=== PATIENT | male | born 1985 | race Caucasian/White ===

== ENCOUNTER → 2017-04-01 | Outpatient (CLI) | payer SELFPAY ==
--- NOTE | 2017-04-01 16:16 | RADIOLOGY REPORT (SQ) ---
EXAM DESCRIPTION: WRIST RIGHT 3 VIEWS COMPLETED DATE/TIME: 04/01/2017 3:44 pm REASON FOR STUDY: PAIN IN RIGHT WRIST COMPARISON: None. TECHNIQUE: Three views study right wrist LIMITATIONS: None. FINDINGS: No acute fractures identified. Bony structures and joint spaces intact. If an occult fracture suspected clinically, consider followup imaging. IMPRESSION: Nothing acute appear TECHNICAL DOCUMENTATION: JOB ID: [id number] [employer]- All Rights Reserved
== END ==
LOC: OD 15:18
PROVIDERS: ATTEND Urology
DX: M25.531 Pain in right wrist (principal)

== ENCOUNTER 2017-06-10 13:27 | Emergency (ER) | payer SELFPAY ==
[2017-06-10] MEDS ORDERED: MORPHINE SULFATE 10 MG/ML INJ IV ONE ×2 (13:37→16:16)
[2017-06-10] MEDS ORDERED: NORMAL SALINE 1000 ML 1,000 ML IV ONE (13:37)
--- NOTE | 2017-06-10 13:38 | ER Document Report ---
ED Medical Screen (RME) - General Chief Complaint: Abdominal Pain Stated Complaint: ABDOMINAL PAIN,DIARRHEA,BLOOD IN STOOL Time Seen by Provider: 06/10/17 13:34 Notes: The patient is a 32-year-old male who presents with 2 days of nausea, vomiting, diarrhea and worsening left lower quadrant abdominal pain. He is also noticing streaks of blood in his stool. He has never had this before. Denies recent antibiotic use, fevers or urinary symptoms. PE: Tachycardia. Soft. Moderate LLQ abdominal tenderness. I have greeted and performed a rapid initial assessment of this patient. A comprehensive ED assessment and evaluation of the patient, analysis of test results and completion of the medical decision making process will be conducted by additional ED providers. TRAVEL OUTSIDE OF THE [place] IN LAST 30 DAYS: No - Related Data Allergies/Adverse Reactions: No Known Allergies Allergy (Verified 10/26/12 08:55) Home Medications: Current Home Medications No Home Medications 06/10/17 [History] Past Medical History Renal/ Medical History: Denies: Hx Peritoneal Dialysis - Immunizations Immunizations up to date: Yes Hx Diphtheria, Pertussis, Tetanus Vaccination: Yes Physical Exam - Vital signs Vitals: Temp Pulse Resp BP Pulse Ox 97.9 F 102 H 20 155/109 H 99 06/10/17 13:36 06/10/17 13:36 06/10/17 13:36 06/10/17 13:36 06/10/17 13:36 Course - Vital Signs Vital signs: Temp Pulse Resp BP Pulse Ox 97.9 F 102 H 20 155/109 H 99 06/10/17 13:36 06/10/17 13:36 06/10/17 13:36 06/10/17 13:36 06/10/17 13:36
--- NOTE | 2017-06-10 14:16 | ER Document Report ---
ED General - General Chief Complaint: Abdominal Pain Stated Complaint: ABDOMINAL PAIN,DIARRHEA,BLOOD IN STOOL Time Seen by Provider: 06/10/17 13:34 Mode of Arrival: Ambulatory Information source: Patient Notes: 32-year-old male presents with complaints of left lower quadrant abdominal pain with rectal bleeding. Patient denies any fevers or chills no symptoms have been ongoing for a few days TRAVEL OUTSIDE OF THE [place] IN LAST 30 DAYS: No - HPI Onset: Last week Onset/Duration: Persistent Quality of pain: Sharp Severity: Moderate Pain Level: 2 Associated symptoms: Diarrhea, Nausea Exacerbated by: Denies Relieved by: Denies Similar symptoms previously: No Recently seen / treated by doctor: No - Related Data Allergies/Adverse Reactions: No Known Allergies Allergy (Verified 06/10/17 13:42) Past Medical History - Social History Smoking Status: Current Some Day Smoker Cigarette use (# per day): Yes Chew tobacco use (# tins/day): No Smoking Education Provided: No Frequency of alcohol use: None Drug Abuse: None Family History: Reviewed & Not Pertinent Renal/ Medical History: Denies: Hx Peritoneal Dialysis - Immunizations Immunizations up to date: Yes Hx Diphtheria, Pertussis, Tetanus Vaccination: Yes Review of Systems - Review of Systems Notes: REVIEW OF SYSTEMS: CONSTITUTIONAL : Denies fever, chills, or sweats. Denies recent illness. EENT: Denies eye, ear, throat, or mouth pain or symptoms. Denies nasal or sinus congestion or discharge. Denies throat, tongue, or mouth swelling or difficulty swallowing. CARDIOVASCULAR: Denies chest pain. Denies palpitations or racing or irregular heart beat. Denies ankle edema. RESPIRATORY: Denies cough, cold, or chest congestion. Denies shortness of breath, difficulty breathing, or wheezing. GASTROINTESTINAL: Admits to left lower quadrant abdominal pain rectal bleeding GENITOURINARY: Denies difficulty urinating, painful urination, burning, frequency, blood in urine, or discharge. MUSCULOSKELETAL: Denies back or neck pain or stiffness. Denies joint pain or swelling. SKIN: Denies rash, lesions or sores. HEMATOLOGIC : Denies easy bruising or bleeding. LYMPHATIC: Denies swollen, enlarged glands. NEUROLOGICAL: Denies confusion or altered mental status. Denies passing out or loss of consciousness. Denies dizziness or lightheadedness. Denies headache. Denies weakness or paralysis or loss of use of either side. Denies problems with gait or speech. Denies sensory loss, numbness, or tingling. Denies seizures. PSYCHIATRIC: Denies anxiety or stress. Denies depression, suicidal ideation, or homicidal ideation. ALL OTHER SYSTEMS REVIEWED AND NEGATIVE. Dictation was performed using [employer] voice recognition software PHYSICAL EXAMINATION: GENERAL: Well-appearing, well-nourished and in no acute distress. HEAD: Atraumatic, normocephalic. EYES: Pupils equal round and reactive to light, extraocular movements intact, sclera anicteric, conjunctiva are normal. ENT: Nares patent, oropharynx clear without exudates. Moist mucous membranes. NECK: Normal range of motion, supple without lymphadenopathy LUNGS: Breath sounds clear to auscultation bilaterally and equal. No wheezes rales or rhonchi. HEART: Regular rate and rhythm without murmurs ABDOMEN: Soft, tender in left lower quadrant with guarding Musculoskeletal: Normal range of motion, no pitting or edema. No cyanosis. NEUROLOGICAL: Cranial nerves grossly intact. Normal speech, normal gait. Normal sensory, motor exams PSYCH: Normal mood, normal affect. SKIN: Warm, Dry, normal turgor, no rashes or lesions noted. Physical Exam - Vital signs Vitals: Temp Pulse Resp BP Pulse Ox 97.9 F 102 H 20 155/109 H 99 06/10/17 13:36 06/10/17 13:36 06/10/17 13:36 06/10/17 13:36 06/10/17 13:36 Course - Re-evaluation Re-evalutation: 06/10/17 14:16 Concern for diverticulitis noted, intra-abdominal concerns rule out abscess with CT abdomen pelvis 06/10/17 16:01 CT is consistent with inflammatory bowel disease however given his new onset symptoms I believe it is more of a colitis bacterial. Patient will be started on antibiotics will be given GI follow-up and is otherwise stable for discharge After performing a Medical Screening Examination, I estimate there is LOW risk for ACUTE APPENDICITIS, BOWEL OBSTRUCTION, ACUTE CHOLECYSTITIS, PERFORATED DIVERTICULITIS, INCARCERATED HERNIA, PANCREATITIS, or PERFORATED ULCER, thus I consider the discharge disposition reasonable. Also, there is no evidence or peritonitis, sepsis, or toxicity. I have reevaluated this patient multiple times and no significant life threatening changes are noted. The patient and I have discussed the diagnosis and risks, and we agree with discharging home with close follow-up with the understanding that symptoms and presentations can change. We also discussed returning to the Emergency Department immediately if new or worsening symptoms occur. We have discussed the symptoms which are most concerning (e.g., bloody stool, fever, changing or worsening pain, intractable vomiting - standard verbal up date) that necessitate immediate return. - Vital Signs Vital signs: Temp Pulse Resp BP Pulse Ox 97.9 F 102 H 20 155/109 H 99 06/10/17 13:36 06/10/17 13:36 06/10/17 13:37 06/10/17 13:36 06/10/17 13:36 - Laboratory Result Diagrams: 06/10/17 14:00 06/10/17 14:00 Laboratory results interpreted by me: 06/10/17 06/10/17 14:00 14:00 RBC 5.57 H Hgb 17.8 H Hct 51.7 H Seg Neutrophils % 84.1 H Lymphocytes % 7.5 L Calcium 10.4 H AST 84 H ALT 74 H - Diagnostic Test Radiology reviewed: Image reviewed, Reports reviewed - inflammation Discharge - Discharge Clinical Impression: Inflammatory bowel disease, Rectal bleeding Condition: Stable Disposition: HOME, SELF-CARE Instructions: Colitis, Nonspecific ([facility]) Prescriptions: Ciprofloxacin HCl [Cipro 500 mg Tablet] 500 mg PO BID #10 tablet Ondansetron [Zofran Odt 4 mg Tablet] 1 - 2 tab PO Q4H PRN #15 tab.rapdis PRN Reason: For Nausea/Vomiting Oxycodone HCl/Acetaminophen [Percocet 5-325 mg Tablet] 1 - 2 tab PO Q4H PRN #15 tablet PRN Reason: Referrals: KYA ESTRADA MD [ACTIVE STAFF] - Follow up tomorrow
[2017-06-10 14:19] LABS: ABSOLUTE LYMPHOCYTES (AUTO) 0.6 10^3/uL (0.5-4.7); ABSOLUTE MONOCYTES (AUTO) 0.6 10^3/uL (0.1-1.4); ABSOLUTE NEUT (AUTO) 6.6 10^3/uL (1.7-8.2); BASOPHILS % (AUTO) 0.5 % (0-2); EOSINOPHILS % (AUTO) 0.4 % (0-6); HEMATOCRIT 51.7 % (37.9-51.0); HEMOGLOBIN 17.8 g/dL (13.5-17.0); HGB HCT DIFFERENCE 1.7; LYMPHOCYTES % (AUTO) 7.5 % (13-45); MEAN CORPUSCULAR HEMOGLOBIN 31.9 pg (27.0-33.4); MEAN CORPUSCULAR HGB CONC 34.3 g/dL (32.0-36.0); MEAN CORPUSCULAR VOLUME 93 fl (80-97); MONOCYTES % (AUTO) 7.5 % (3-13); RED BLOOD COUNT 5.57 10^6/uL (4.35-5.55); RED CELL DISTRIBUTION WIDTH 13.3 % (11.5-14.0); SEGMENTED NEUTROPHILS % (AUTO) 84.1 % (42-78); WHITE BLOOD COUNT 7.8 10^3/uL (4.0-10.5)
[2017-06-10 14:34] LABS: ALANINE AMINOTRANSFERASE 74 U/L (21-72); ALBUMIN 4.8 g/dL (3.5-5.0); ALKALINE PHOSPHATASE 83 U/L (38-126); ANION GAP 14 (5-19); ASPARTATE AMINO TRANSFERASE 84 U/L (17-59); BILIRUBIN,DIRECT 0.4 mg/dL (0.0-0.4); BILIRUBIN,TOTAL 0.5 mg/dL (0.2-1.3); BLOOD UREA NITROGEN 12 mg/dL (7-20); CALCIUM 10.4 mg/dL (8.4-10.2); CARBON DIOXIDE 26 mmol/L (22-30); CHLORIDE 98 mmol/L (98-107); CREATININE RESULT 1.13 mg/dL (0.52-1.25); GLUCOSE 105 mg/dL (75-110); LIPASE 124.8 U/L (23-300); POTASSIUM 4.1 mmol/L (3.6-5.0); SODIUM 137.5 mmol/L (137-145)
--- NOTE | 2017-06-10 15:35 | RADIOLOGY REPORT (SQ) ---
EXAM DESCRIPTION: CT ABD/PELVIS WITH IV ONLY COMPLETED DATE/TIME: 06/10/2017 3:16 pm REASON FOR STUDY: LLQ tenderness COMPARISON: None. TECHNIQUE: CT scan of the abdomen and pelvis performed using helical scanning technique with dynamic intravenous contrast injection. No oral contrast. Images reviewed with lung, soft tissue, and bone windows. Reconstructed coronal and sagittal MPR images reviewed. Delayed images for evaluation of the urinary system also acquired. All images stored on PACS. All CT scanners at this facility use dose modulation, iterative reconstruction, and/or weight based d osing when appropriate to reduce radiation dose to as low as reasonably achievable (ALARA). [facility]: Dose Right [facility]: CareDose [facility]: Dose Right [facility]: Teradose 4D [facility]: PulseOn CONTRAST TYPE AND DOSE: contrast/concentration: Isovue 370.00 mg/ml; Total Contrast Delivered: 92.0 ml; Total Saline Delivered: 70.1 ml RENAL FUNCTION: None required. The patient is less than 50 years old. RADIATION DOSE: Up-to-date CT equipment and radiation dose reduction techniques were employed. CTDIv ol: 8.8 - 12.3 mGy. DLP: 1206 mGy-cm.. LIMITATIONS: None. FINDINGS: LOWER CHEST: No significant findings. No nodules or infiltrates. LIVER: Normal size. No masses. No dilated ducts. SPLEEN: Normal size. No focal lesions. PANCREAS: No masses. No significant calcifications. No adjacent inflammation or peripancreatic fluid collections. Pancreatic duct not dilated. GALLBLADDER: No identified stones by CT criteria. No inflammatory changes to suggest cholecystitis. ADRENAL GLANDS: No significant masses or asymmetry. RIGHT KIDNEY AND URETER: No solid masses. No significant calcifications. No hydronephrosis or hyd roureter. LEFT KIDNEY AND URETER: No solid masses. No significant calcifications. No hydronephrosis or hydr oureter. AORTA AND VESSELS: No aneurysm. No dissection. Renal arteries, SMA, celiac without stenosis. RETROPERITONEUM: No retroperitoneal adenopathy, hemorrhage or masses. BOWEL AND PERITONEAL CAVITY: There is thickening of the alejandro of the colon and distal ileum. This sp román the sigmoid and rectum. APPENDIX: Normal. PELVIS: The urinary bladder is normal. The prostate gland and seminal vesicles are unremarkable. ABDOMINAL WALL: No masses. No hernias. BONES: No significant or acute findings. OTHER: No other significant finding. IMPRESSION: The appearance of the distal ileum and the colon from cecum through the descending colon is concerning for inflammatory bowel disease. Correlate clinically. TECHNICAL DOCUMENTATION: JOB ID: [id number] Quality ID # [id number]: Final reports with documentation of one or more dose reduction techniques (e.g., Au tomated exposure control, adjustment of the mA and/or kV according to patient size, use of iterative reconstruction technique) 2010 [employer]- All Rights Reserved
[2017-06-10] MEDS ORDERED: DICYCLOMINE HCL INJ 20 MG/2 ML AMPULE IM ONE (16:18)
[2017-06-10 17:00] VITALS: BP 151/91
== END 2017-06-10 16:57 | disposition home or self-care (01) ==
LOC: ER 13:27
DX: K58.8 Other irritable bowel syndrome (principal); R10.32 Left lower quadrant pain; K62.5 Hemorrhage of anus and rectum; R19.7 Diarrhea, unspecified; F17.210 Nicotine dependence, cigarettes, uncomplicated
CPT/HCPCS: 96376; 99284; 96372; 96361; 96374; 36415; 83690; 85025; 80053; 74177; J0500; J2270; J7030

== ENCOUNTER 2018-01-30 16:25 | Emergency (ER) | payer SELFPAY ==
[2018-01-30] MEDS ORDERED: PREDNISONE 20 MG TABLET PO ONE (17:01)
[2018-01-30] MEDS ORDERED: RACEPINEPHRINE HCL 2.25% NEB 0.5 ML AMPUL NEB ONE (17:01)
--- NOTE | 2018-01-30 17:03 | ER Document Report ---
ED Respiratory Problem - General Chief Complaint: Breathing Difficulty Stated Complaint: DIFFICULTY BREATHING Time Seen by Provider: 01/30/18 16:58 Mode of Arrival: Ambulatory Information source: Patient, [facility] Records Notes: 32-year-old male patient reports he has had respiratory illness type symptoms for the past 2 days. 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 He believes the heavy pollen caused him to start coughing and have difficulty breathing. He does have problems with pollen every year. He reports his symptoms started about 3:30 PM. He reports he feels difficulty in breathing in. He does have a congested cough. (See the expanded history in the "re-evaluation" section under "course".) TRAVEL OUTSIDE OF THE [place] 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 Lives with: Friend Family History: Reviewed & Not Pertinent - Medical History Medical History: Negative Surgical Hx: Negative - Immunizations Immunizations up to date: Yes Hx Diphtheria, Pertussis, Tetanus Vaccination: Yes Review of Systems - Review of Systems Constitutional: No symptoms reported EENT: Nose congestion, Sinus pressure Cardiovascular: No symptoms reported Respiratory: Cough Gastrointestinal: Diarrhea Genitourinary: No symptoms reported Musculoskeletal: No symptoms reported Skin: No symptoms reported Hematologic/Lymphatic: No symptoms reported Neurological/Psychological: No symptoms reported Physical Exam - Vital signs Vitals: Temp Pulse Resp BP Pulse Ox 97.9 F 131 H 22 H 136/82 H 99 01/30/18 16:29 01/30/18 16:29 01/30/18 16:29 01/30/18 16:29 01/30/18 16:29 Interpretation: Tachycardic, Tachypneic - General General appearance: Alert, Anxious In distress: Mild - HEENT Head: Normocephalic, Atraumatic Eyes: Normal Pupils: PERRL Nasal: Other - There is some nasal and sinus congestion Mucous membranes: Normal Pharynx: Normal Neck: Carotid bruit - Respiratory Respiratory status: Tachypnea Breath sounds: Other - Coarse breath sounds, some rhonchi in the bases with coughing, no definite wheezes heard - Cardiovascular Rhythm: Regular, Tachycardia Heart sounds: Normal auscultation Murmur: No - Abdominal Inspection: Normal - Back Back: Normal - Extremities General upper extremity: Normal inspection General lower extremity: Normal inspection - Neurological Neuro grossly intact: Yes - Psychological Associated symptoms: Normal affect, Normal mood - Skin Skin Temperature: Warm Skin Moisture: Dry Skin Color: Normal Course - Re-evaluation Re-evalutation: 01/30/18 18:34 Patient's breathing feels much better after the breathing treatments. He has added to his history that since he became sick yesterday that he now has the runs and when he drinks fluids it seems to run right through him. He will be advised to stay on clear liquids and start taking generic Imodium right ear for the GI symptoms. He will receive a prescription for prednisone taper dose to start tomorrow, and will be given an inhaler here before being discharged. 01/30/18 18:54 At discharge patient was found to still be quite tachycardic with heart rate in the 130 range, he does look flushed and is kind of chilled with a blanket on. The room is quite cool and we cannot control the temperature unfortunately. His mouth does look a little dry. He will be given oral hydration, IV fluids, and some lab work will be drawn to be sure there is not something more serious than a viral illness causing this. 01/30/18 20:11 At this time the patient does not have chills any longer but is still tachycardic with a heart rate around 126 8. His abdomen is soft, percussion dull with active bowel sounds. It is slightly tender to deep palpation throughout. He is changed his history now to stating that Saturday evening he developed the diarrhea with losing his voice and a cough. The diarrhea was bad Saturday and Saturday. It was a little better on Saturday. He states he felt fine this morning when he went to work, and was good until he was out using the blower, blowing leaves and pollen. He also reports that prior to coming to the emergency room after he began with his symptoms, he vomited maybe "50 times". He has had no vomiting or nausea while here in the emergency room. 01/30/18 21:54 Stool specimen shows many WBCs consistent with infectious diarrhea. His diagnoses now are infectious diarrhea, bronchitis with bronchospasm, allergic reaction to pollen, leukocytosis. 01/30/18 22:17 The patient is feeling much better after second liter of fluid. Color in his face is back to normal. He will be given a dose of Cipro and Flagyl tonight and a prescription to fill tomorrow. 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 - Vital Signs Vital signs: Temp Pulse Resp BP Pulse Ox 97.4 F 130 H 20 139/93 H 99 01/30/18 18:49 01/30/18 18:49 01/30/18 18:49 01/30/18 18:49 01/30/18 18:49 - Laboratory Result Diagrams: 01/30/18 19:25 01/30/18 20:00 Laboratory results interpreted by me: 01/30/18 01/30/18 01/30/18 19:25 20:00 20:31 WBC 20.1 H Hgb 17.5 H Hct 51.3 H Seg Neuts % (Manual) 84 H Band Neutrophils % 9 H Lymphocytes % (Manual) 2 L Abs Neuts (Manual) 18.7 H Abs Lymphs (Manual) 0.4 L Chloride 97 L Glucose 159 H Stool for White Cells MANY H Discharge - Discharge Clinical Impression: Allergic reaction to inhaled pollen, Bronchitis with bronchospasm, Infectious diarrhea Leukocytosis Qualifiers: Leukocytosis type: bandemia Qualified Code(s): D72.825 - Bandemia Condition: Stable Disposition: HOME, SELF-CARE Additional Instructions: Bronchitis: You have acute bronchitis. This disease is an infection or inflammation of the air passageways in your lungs. Symptoms usually include cough, low grade fever, shortness of breath, and wheezing. The cough usually persists for a couple of weeks. Most cases of bronchitis get better without antibiotics. We prescribe antibiotics when we believe bacteria are damaging your airways, or if there's high risk the bronchitis will worsen into pneumonia. Increase your fluid intake. A cool mist humidifier may make your lungs more comfortable. An expectorant (cough medicine that loosens phlegm) can help. If you smoke, STOP!!! Recovery from bronchitis can be somewhat slow, but you should see improvement within a day or two. Repeated episodes of bronchitis may result in lung damage -- for example, chronic bronchitis, recurrent pneumonias, or emphysema. Call the doctor if you develop increasing fever, shortness of breath, chest pain, bloody sputum, or otherwise worsen. If you have not improved at all after several days, contact the physician. Diarrhea: Diarrhea means frequent, watery stools. There are many causes. Any problem that keeps the intestinal tract from absorbing water from the stool can lead to diarrhea. A sudden new diarrhea problem is usually caused by a virus, food sensitivity, toxic bacteria, or drugs. In this case, we expect the problem to go away soon. Testing is done only if you seem seriously ill from the diarrhea. During an episode of diarrhea, drink small amounts (two to six ounces) of clear liquids (soft drinks, sport drinks, herb teas, broth, etc). Take fluids frequently to prevent dehydration. As the diarrhea eases, advance to small amounts of bland food (mashed potato, toast) for 24 hours. Call the physician if blood appears in your vomit or stool, if vomiting lasts longer than 24 hours, if the abdominal pain worsens or becomes localized to one area, if you develop high fever, or if you become lightheaded and weak. Your current respiratory illness, was made acutely worse by inhaling pollen. You should use the dispensed inhaler, 2 puffs every 2-4 hours as needed for wheezing. Your diarrhea appears to be caused by bacteria and is called infectious diarrhea. You can take Pepto-Bismol to help with the diarrhea. Take the antibiotics as prescribed. Drink cool clear liquids. Get plenty of rest and stay indoors to avoid pollen. Follow-up with local medical doctor if not improving. RETURN TO THE EMERGENCY ROOM IF ANY NEW OR WORSENING SYMPTOMS. Prescriptions: Ciprofloxacin HCl [Cipro 500 mg Tablet] 500 mg PO BID #10 tablet Metronidazole [Flagyl 500 mg Tablet] 500 mg PO TID #15 tablet Forms: Return to Work
[2018-01-30] MEDS ORDERED: IPRATROPIUM/ALBUTEROL 0.5-2.5 MG/3 ML AMPUL NEB ONE (17:44)
[2018-01-30] MEDS ORDERED: ALBUTEROL SULFATE HFA (90 MCG/PUFF) 8 GM MDI (1 MDI/ER DISP) IH ONE (18:36)
[2018-01-30] MEDS ORDERED: NORMAL SALINE 1000 ML 1,000 ML IV ONE (18:54)
[2018-01-30 19:43] LABS: HEMATOCRIT 51.3 % (37.9-51.0); HEMOGLOBIN 17.5 g/dL (13.5-17.0); MEAN CORPUSCULAR HEMOGLOBIN 31.5 pg (27.0-33.4); MEAN CORPUSCULAR HGB CONC 34.1 g/dL (32.0-36.0); MEAN CORPUSCULAR VOLUME 93 fl (80-97); RED BLOOD COUNT 5.54 10^6/uL (4.35-5.55); RED CELL DISTRIBUTION WIDTH 13.7 % (11.5-14.0); WHITE BLOOD COUNT 20.1 10^3/uL (4.0-10.5)
[2018-01-30 20:04] LABS: ABSOLUTE LYMPHOCYTES# (MANUAL) 0.4 10^3/uL (0.5-4.7); ABSOLUTE MONOCYTES # (MANUAL) 0.6 10^3/uL (0.1-1.4); ABSOLUTE NEUTROPHILS# (MANUAL) 18.7 10^3/uL (1.7-8.2); BAND NEUTROPHILS % (MANUAL) 9 % (3-5); BASOPHILS % (MANUAL) 0 % (0-2); EOSINOPHILS % (MANUAL) 2 % (0-6); LYMPHOCYTES % (MANUAL) 2 % (13-45); MONOCYTES % (MANUAL) 3 % (3-13); SEGMENTED NEUTROPHILS % (MAN) 84 % (42-78); TOTAL CELLS COUNTED 100
[2018-01-30 20:06] LABS: PLATELET CLUMPS PRESENT; PLATELET COMMENT ADEQUATE; PLATELET COUNT 315 10^3/uL (150-450); POLYCHROMASIA SLIGHT
[2018-01-30] MEDS ORDERED: LOPERAMIDE HCL 2 MG CAPSULE PO ONE (20:08)
[2018-01-30 20:32] LABS: ALANINE AMINOTRANSFERASE 46 U/L (21-72); ALKALINE PHOSPHATASE 67 U/L (38-126); ANION GAP 15 (5-19); ASPARTATE AMINO TRANSFERASE 35 U/L (17-59); BILIRUBIN,DIRECT 0.4 mg/dL (0.0-0.4); BILIRUBIN,TOTAL 0.7 mg/dL (0.2-1.3); BLOOD UREA NITROGEN 20 mg/dL (7-20); CALCIUM 8.9 mg/dL (8.4-10.2); CARBON DIOXIDE 28 mmol/L (22-30); CHLORIDE 97 mmol/L (98-107); GLUCOSE 159 mg/dL (75-110); POTASSIUM 3.6 mmol/L (3.6-5.0); SODIUM 139.6 mmol/L (137-145); TOTAL PROTEIN 6.6 g/dL (6.3-8.2)
[2018-01-30] MEDS ORDERED: RINGERS SOLUTION,LACTATED 1,000 ML IV ONE (20:50)
--- NOTE | 2018-01-30 20:56 | RADIOLOGY REPORT (SQ) ---
EXAM DESCRIPTION: ACUTE ABDOMEN SERIES COMPLETED DATE/TIME: 01/30/2018 8:37 pm REASON FOR STUDY: Cough, diarrhea, leukocytosis COMPARISON: None. NUMBER OF VIEWS: Three views. TECHNIQUE: Frontal chest, supine abdomen and upright/decubitus abdomen radiographic images acquired. LIMITATIONS: None. FINDINGS: CHEST: Lungs clear of infiltrates. FREE AIR: None. No abnormal gas collections. BOWEL GAS PATTERN: Nonobstructive pattern. No dilated loops or air fluid levels. CALCIFICATIONS: No suspicious calcifications. HARDWARE: None in the abdomen. SOFT TISSUES: No gross mass or suggestion of organomegaly. BONES: No acute fracture. No worrisome bone lesions. OTHER: No other significant finding. IMPRESSION: NO RADIOGRAPHIC EVIDENCE FOR ACUTE ABDOMINAL DISEASE. TECHNICAL DOCUMENTATION: JOB ID: [id number] [place]-72 2010 [employer]- All Rights Reserved Reading location - IP/workstation name: [email or web address]
[2018-01-30] MEDS ORDERED: METRONIDAZOLE 500 MG TABLET PO ONE (21:55)
[2018-01-30] MEDS ORDERED: CIPROFLOXACIN HCL 750 MG TABLET PO ONE (21:55)
[2018-01-30 22:24] VITALS: BP 129/88
== END 2018-01-30 22:22 | disposition home or self-care (01) ==
LOC: ER 16:25
DX: J30.1 Allergic rhinitis due to pollen (principal); J40 Bronchitis, not specified as acute or chronic; J98.01 Acute bronchospasm; A09 Infectious gastroenteritis and colitis, unspecified; D72.825 Bandemia; R06.82 Tachypnea, not elsewhere classified; R00.0 Tachycardia, unspecified; R05 Cough; F17.210 Nicotine dependence, cigarettes, uncomplicated
CPT/HCPCS: 94640 ×2; 99285; 96361; 96365; 36415; 87045; 89055; 87205; 85025; 80053; 87493; 74022; J7512; J3490 ×3; J7030; J7120; J7620

== ENCOUNTER 2019-06-28 10:19 | Emergency (ER) | payer SELFPAY ==
[2019-06-28] MEDS ORDERED: MORPHINE SULFATE 10 MG/ML INJ IV ONE (11:38)
[2019-06-28] MEDS ORDERED: DIPH/PERTUSS(ACELL)/TETANUS VAC/PF 0.5 ML SYR (>=10YO) IM ONE (11:38)
[2019-06-28] MEDS ORDERED: RINGERS SOLUTION,LACTATED 1,000 ML IV ONE (11:39)
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
[2019-06-28] MEDS ORDERED: HYDROMORPHONE HCL INJ/PF 2 MG/ML AMPULE IV ONE ×3 (14:23→15:37)
[2019-06-28] MEDS ORDERED: LORAZEPAM INJ 2 MG/1 ML VIAL IV ONE (14:23)
[2019-06-28] MEDS ORDERED: BACITRACIN ZINC OINTMENT 15 GM TP ONE ×2 (14:47→15:34)
[2019-06-28 16:26] VITALS: BP 131/98
== END 2019-06-28 16:10 | disposition home or self-care (01) ==
LOC: ER 10:19
DX: T25.211A Burn of second degree of right ankle, initial encounter (principal); F41.9 Anxiety disorder, unspecified; R00.0 Tachycardia, unspecified; X10.2XXA Contact with fats and cooking oils, initial encounter
CPT/HCPCS: 99283; 96361; 90471; 96374; 96375; 90715; J3490; J2270; J1170; J2060; J7120

== ENCOUNTER 2019-06-29 23:44 | Emergency (ER) | payer SELFPAY ==
[2019-06-30] MEDS ORDERED: SILVER SULFADIAZINE 1% CREAM 400 GM TP ONE (02:01)
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
[2019-06-30] MEDS ORDERED: SILVER SULFADIAZINE 1% CREAM 400 GM ONE (02:18)
[2019-06-30 02:39] VITALS: BP 148/98
== END 2019-06-30 02:39 | disposition home or self-care (01) ==
LOC: ER 23:44
DX: T24.201D Burn of second degree of unspecified site of right lower limb, except ankle and foot, subsequent encounter (principal); X10.2XXD Contact with fats and cooking oils, subsequent encounter
CPT/HCPCS: 99282; J3490

== ENCOUNTER 2019-08-12 10:09 | Emergency (ER) | payer SELFPAY ==
[2019-08-12] MEDS ORDERED: TETRACAINE HCL 0.5% OPH SOLN 4 ML OD ONE (11:17)
--- NOTE | 2019-08-12 11:17 | ER Document Report ---
HPI - HPI Time Seen by Provider: 08/12/19 10:58 Pain Level: 2 Context: Patient is a 34-year-old male who presents to the emergency department with chief complaint of right eye pain. Patient reports he woke up this morning and noticed burning to the right eye. Patient reports he felt like something was in his right lower eye. Patient reports he is attempted to use eyedrops without relief. Patient reports blurred vision. Patient reports extreme irritation to the right eye. Patient reports he does not wear contact lenses or eyeglasses. Patient reports excessive tearing of the eye. Patient denies injury or known foreign body to the eye. Past Medical History - General Information source: Patient - Social History Smoking Status: Current Every Day Smoker Lives with: Family Family History: Reviewed & Not Pertinent Patient has suicidal ideation: No Patient has homicidal ideation: No - Past Medical History Cardiac Medical History: Reports: None Pulmonary Medical History: Reports: None EENT Medical History: Reports: None Neurological Medical History: Reports: None Endocrine Medical History: Reports: None Renal/ Medical History: Reports: None Malignancy Medical History: Reports None GI Medical History: Reports: None Musculoskeletal Medical History: Reports Hx Musculoskeletal Trauma Skin Medical History: Reports None Psychiatric Medical History: Reports: None Traumatic Medical History: Reports: Hx Fractures - Clavicle ribs ankle wrist Infectious Medical History: Reports: None Past Surgical History: Reports: Hx Orthopedic Surgery - Wrist - Immunizations Immunizations up to date: Yes Hx Diphtheria, Pertussis, Tetanus Vaccination: Yes - 06/28/2019 [facility] Provider Document - CONSTITUTIONAL Agree With Documented VS: Yes Exam Limitations: No Limitations General Appearance: Mild Distress - INFECTION CONTROL TRAVEL OUTSIDE OF THE [place] IN LAST 30 DAYS: No - NECK Neck: Normal Inspection - RESPIRATORY Respiratory: Breath Sounds Normal, No Respiratory Distress - CARDIOVASCULAR Cardiovascular: Regular Rhythm, Tachycardia - GI/ABDOMEN Gastrointestinal: Abdomen Soft, Abdomen Non-Tender - NEURO Level of Consciousness: Awake, Alert, Appropriate - DERM Integumentary: Warm, Dry, No Rash Course - Re-evaluation Re-evalutation: 08/12/19 12:[address] Escalante, will see patient in the office in one hour at 13:15. I did make the patient aware of this. Patient given another drop of Tetracaine for pain relief. No obvious signs of corneal abrasion. - Vital Signs Vital signs: Temp Pulse Resp BP Pulse Ox 98.0 F 124 H 16 143/92 H 96 08/12/19 10:15 08/12/19 10:15 08/12/19 10:15 08/12/19 10:15 08/12/19 10:15 Procedures - Eye Procedure Right Time completed: 11:30 Fluorescein applied: Right Slit lamp used: No Notes: 08/12/19 11:42 PERRLA, no uptake, + injection, reports relief from tetracaine drops. Unable to obtain eye pressures due to malfunction of tonopen. Discharge - Discharge Clinical Impression: Acute right eye pain Condition: Stable Disposition: HOME, SELF-CARE Additional Instructions: Today you are seen in the emergency department for right eye pain. You were given multiple drops called tetracaine which is numbing medication. This is usually brief and does wear off. I have spoken with the personal insurance advisor who will see you around 115 this afternoon. Please go to the office at this time to fill out paperwork. Forms: Return to Work Referrals: DANILO WALLER, DO [ACTIVE STAFF] - Follow up as needed
[2019-08-12 12:12] VITALS: BP 130/84
== END 2019-08-12 12:10 | disposition home or self-care (01) ==
LOC: ER 10:09
DX: H57.11 Ocular pain, right eye (principal); H53.8 Other visual disturbances; F17.200 Nicotine dependence, unspecified, uncomplicated
CPT/HCPCS: 99283; J3490

== ENCOUNTER 2020-02-21 13:13 | Emergency (ER) | payer SELFPAY ==
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
--- NOTE | 2020-02-21 14:26 | RADIOLOGY REPORT (SQ) ---
EXAM DESCRIPTION: FEMUR RIGHT IMAGES COMPLETED DATE/TIME: 02/21/2020 1:09 pm REASON FOR STUDY: Painful swollen thigh muscles COMPARISON: None. NUMBER OF VIEWS: Two views. TECHNIQUE: Two radiographic images acquired of the right femur to include hip and knee in at least o ne projection. LIMITATIONS: None. FINDINGS: MINERALIZATION: Normal. BONES: No acute fracture. No worrisome bone lesions. SOFT TISSUES: No obvious swelling or foreign body. OTHER: No other significant finding. IMPRESSION: NEGATIVE STUDY OF THE RIGHT FEMUR. NO RADIOGRAPHIC EVIDENCE OF ACUTE INJURY. TECHNICAL DOCUMENTATION: JOB ID: [id number] 2010 [employer]- All Rights Reserved Reading location - IP/workstation name: [email or web address]
[2020-02-21] MEDS ORDERED: VANCOMYCIN HCL INJ 1000 MG VIAL IV ONE (14:29)
[2020-02-21] MEDS ORDERED: PIPERACILLIN/TAZOBACTAM 3.375 GM VIAL IV ONE (14:29)
--- NOTE | 2020-02-21 14:32 | ER Document Report ---
ED Extremity Problem, Lower - General Mode of Arrival: Wheelchair Information source: Patient TRAVEL OUTSIDE OF THE [place] IN LAST 30 DAYS: No - HPI Patient complains to provider of: Pain, Swelling. No: Injury Location: Thigh Occurred: Other - 3 days Onset/Duration: Worse Quality of pain: Sharp Pain Level: 5 Recent injury: No Associated symptoms: Painful ambulation. denies: Fever Exacerbated by: Movement, Walking Relieved by: Nothing <SHANNAN PETTY - Last Filed: 02/21/20 19:38> <OSWALDO HAWLEY - Last Filed: 02/21/20 20:57> - General Chief Complaint: Leg Pain Stated Complaint: RIGHT LEG PAIN Time Seen by Provider: 02/21/20 13:37 Primary Care Provider: [facility] [Provider Group] - Follow up as needed [facility] [Provider Group] - Follow up as needed Notes: Patient states that he had worked out heavily 4 days ago. Patient states that he did not have any injury while working out. Patient states 2 days later he started to develop right thigh tenderness, swelling and redness. Patient states symptoms significantly worsened since yesterday. Patient denies any fever, nausea or vomiting. Patient denies any history of DVT or PE. Patient denies any recent immobilization or long distance travel. Patient denies any history of IV drug abuse or any subcutaneous injections. Patient denies any use of inj ectable steroids. Patient does have a skin graft harvest site that is healed to the anterior right thigh. 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 denies: Fever, Recent illness EENT: No symptoms reported Cardiovascular: No symptoms reported. denies: Chest pain Respiratory: No symptoms reported. denies: Cough, Short of breath Gastrointestinal: No symptoms reported. denies: Vomiting Genitourinary: No symptoms reported Male Genitourinary: No symptoms reported Musculoskeletal: Muscle pain, Other - Right thigh tenderness, redness and swelling. denies: Back pain Skin: Change in color - Redness to right thigh Hematologic/Lymphatic: No symptoms reported Neurological/Psychological: No symptoms reported <SHANNAN PETTY - Last Filed: 02/21/20 19:38> Physical Exam - General General appearance: Appears well, Alert In distress: None - HEENT Head: Normocephalic, Atraumatic Eyes: Normal Conjunctiva: Normal Nasal: Normal Mouth/Lips: Normal Mucous membranes: Normal Neck: Normal, Supple. No: Lymphadenopathy - Respiratory Respiratory status: No respiratory distress Chest status: Nontender Breath sounds: Normal. No: Rales, Rhonchi, Stridor, Wheezing Chest palpation: Normal - Cardiovascular Rhythm: Tachycardia Heart sounds: S1 appreciated, S2 appreciated Pulses: Normal: Dorsalis pedis - Abdominal Inspection: Normal Tenderness: Nontender - Back Back: Normal, Nontender - Extremities General upper extremity: Normal inspection, Normal strength General lower extremity: Tender Thigh: Tender - [place] to right thigh primarily to the distal two thirds. Patient with erythema to the anterior aspect of the thigh. Patient does have previous skin graft harvest site to the anterior thigh. Area to the anterior distal third of the femur is indurated, skin is warm to touch and erythematous Calf: Normal, Nontender Ankle: Normal, Nontender Foot: Normal, Nontender - Neurological Neuro grossly intact: Yes Cognition: Normal Kayleigh Coma Scale Eye Opening: Spontaneous Kayleigh Coma Scale Verbal: Oriented Kayleigh Coma Scale Motor: Obeys Commands Freedom Coma Scale Total: 15 - Psychological Associated symptoms: Normal affect, Normal mood - Skin Skin Temperature: Warm Skin Moisture: Dry Skin Color: Erythema - Erythema to anterior aspect of right thigh Irregularity with: Swelling, Tenderness, Warmth, Induration, Inflammation <SHANNAN PETTY - Last Filed: 02/21/20 19:38> - Vital signs Vitals: Temp Pulse Resp BP Pulse Ox 99.0 F 115 H 16 154/88 H 98 02/21/20 13:17 02/21/20 13:17 02/21/20 13:17 02/21/20 13:17 02/21/20 13:17 Course - Laboratory Result Diagrams: 02/21/20 14:20 02/21/20 14:20 - Diagnostic Test Radiology reviewed: Reports reviewed <SHANNAN PETTY - Last Filed: 02/21/20 19:38> - Laboratory Result Diagrams: 02/21/20 14:20 02/21/20 14:20 <OSWALDO HAWLEY - Last Filed: 02/21/20 20:57> - Re-evaluation Re-evalutation: 02/21/20 14:[address] Hawley, Dr. Hawley to bedside for examination. Agrees with concerns about possible cellulitis with abscess, advises CT imaging at this time. No concerns at this time for necrotizing fasciitis or compartment syndrome. Recommends possible consultation with hospitalist for admission pending the results of CT scan. 02/21/20 16:00 CT scan report reviewed, no definite abscess although there is findings worrisome for cellulitis. Dr. Hawley consulted with Dr. Brennan, Dr. Brennan to room for examination. 02/21/20 16:20 Using shared decision making, patient elects to take outpatient oral antibiotic therapy versus admission for parenteral antibiotic administration at this time. Patient reports that he has work obligations and cannot be admitted at this time. Dr. Brennan had evaluated patient and does not feel that he has an emergent surgical problem at this time and suspects likely muscle strain or injury from patient's most recent workout. (SHANNAN PETTY) 02/21/20 20:49 I did personally see and examined this patient in conjunction with nurse practitioner Claudia Petty. Given the fact that he had his hard workout on but only started complaining of pain on Saturday and noticing significant swelling and erythema on Saturday I was concerned for possible abscess. Examination of his leg did show extensive erythema that is not circumferential and some fairly exquisite tenderness to palpation along the vastus medialis muscle. There was no crepitus and there was no fluctuance. No break in the skin, no evidence of compartment syndrome or necrotizing fasciitis. I appreciate Dr. Brennan's consult. Dr. Brennan discussed with the patient that he feels this is likely all traumatic and does not represent infection. I discussed with the patient that there were 3 different options that we could pursue. The most conservative course would be to admit him for IV antibiotics out of an abundance of caution given how extensive the cellulitis appears to be, we could discharge him to home on oral antibiotics with strict return precautions to return for fever, extension of the erythema or any new or concerning symptoms or we could forego antibiotics entirely assuming that this is traumatic due to the lack of leukocytosis and the lack of fever. Discussed t he risks and benefits of all 3 options, patient currently would like to try oral antibiotics with strict return precautions. I agree with this decision and the patient will return for fever, increasing erythema, swelling or worsening pain. (OSWALDO HAWLEY) - Vital Signs Vital signs: Temp Pulse Resp BP Pulse Ox 99.5 F 101 H 18 156/97 H 98 02/21/20 17:40 02/21/20 17:40 02/21/20 17:40 02/21/20 17:40 02/21/20 17:40 - Laboratory Laboratory results interpreted by me: 02/21/20 02/21/20 02/21/20 14:20 14:20 15:30 Lymph % (Auto) 9.2 L [place] % (Auto) 13.3 H Carbon Dioxide 33 H Creatine Kinase 291 H Urine Urobilinogen 4.0 H Labs- Entire Visit 02/21/20 02/21/20 02/21/20 14:20 14:20 15:30 WBC 10.4 RBC 4.58 Hgb 15.2 Hct 44.6 MCV 97 MCH 33.2 MCHC 34.1 RDW 13.9 Plt Count 343 Lymph % (Auto) 9.2 L [place] % (Auto) 13.3 H Eos % (Auto) 3.1 Baso % (Auto) 0.5 Absolute Neuts (auto) 7.7 Absolute Lymphs (auto) 0.9 Absolute Monos (auto) 1.4 Absolute Eos (auto) 0.3 Absolute Basos (auto) 0.0 Seg Neutrophils % 73.9 Sodium 138.3 Potassium 4.4 Chloride 99 Carbon Dioxide 33 H Anion Gap 6 BUN 10 Creatinine 0.88 Est GFR ( Amer) > 60 Est GFR (MDRD) Non-Af > 60 Glucose 96 Calcium 9.1 Total Bilirubin 0.8 Direct Bilirubin 0.1 Neonat Total Bilirubin Not Reportable Neonat Direct Bilirubin Not Reportable Neonat Indirect Bili Not Reportable AST 31 ALT 25 Alkaline Phosphatase 38 Creatine Kinase 291 H Total Protein 7.2 Albumin 3.8 Urine Color YELLOW Urine Appearance CLEAR Urine pH 8.0 Ur Specific [place] 1.036 Urine Protein NEGATIVE Urine Glucose (UA) NEGATIVE Urine Ketones NEGATIVE Urine Blood NEGATIVE Urine Nitrite (Reflex) NEGATIVE Urine Bilirubin NEGATIVE Urine Urobilinogen 4.0 H Leukocyte Esterase Rfl NEGATIVE Urine RBC (Auto) 0 Urine WBC (Reflex) 2 Urine Mucus (Auto) RARE Urine Ascorbic Acid NEGATIVE (SHANNAN PETTY) Procedures - Immobilization Right Thigh Pre-Proc Neuro Vasc Exam: Normal Immobilizer type: Justin wrap Performed by: RN Post-Proc Neuro Vasc Exam: Normal Alignment checked and good: Yes <SHANNAN PETTY - Last Filed: 02/21/20 19:38> Discharge <SHANNAN PETTY - Last Filed: 02/21/20 19:38> <OSWALDO HAWLEY - Last Filed: 02/21/20 20:57> - Discharge Clinical Impression: Right thigh pain Cellulitis Qualifiers: Site of cellulitis: extremity Site of cellulitis of extremity: lower extremity Laterality: right Qualified Code(s): L03.115 - Cellulitis of right lower limb Condition: Stable Disposition: HOME, SELF-CARE Instructions: Cellulitis ([facility]), Cephalexin ([facility]), IV Antibiotics ([facility]), Oral Narcotic Medication ([facility]), Trimethoprim-Sulfa ([facility]) Additional Instructions: Return immediately for any new or worsening symptoms: Increased pain, increased swelling, increased redness, fever or any worrisome new symptoms Followup with your primary care provider, call tomorrow to make a followup appointment Prescriptions: Sulfamethoxazole/Trimethoprim [Bactrim Ds Tablet] 1 each PO BID #20 tablet Cephalexin Monohydrate [Keflex 500 mg Capsule] 500 mg PO Q6H 7 Days #28 capsule Naproxen [Naprosyn 250 Nmg Tablet] 1 tab PO BID #14 tablet Hydrocodone/Acetaminophen [[place] 5-325 mg Tablet] 1 tab PO Q6 PRN #15 tablet PRN Reason: Referrals: [facility] [Provider Group] - Follow up as needed [facility] [Provider Group] - Follow up as needed
[2020-02-21] MEDS: NORMAL SALINE 1000 ML 1,000 ML IV PRN ×2 (14:37→15:41)
[2020-02-21 14:46] LABS: ABSOLUTE EOSINOPHILS # (AUTO) 0.3 10^3/uL (0.0-0.6); ABSOLUTE LYMPHOCYTES (AUTO) 0.9 10^3/uL (0.5-4.7); ABSOLUTE MONOCYTES (AUTO) 1.4 10^3/uL (0.1-1.4); ABSOLUTE NEUT (AUTO) 7.7 10^3/uL (1.7-8.2); BASOPHILS % (AUTO) 0.5 % (0-2); EOSINOPHILS % (AUTO) 3.1 % (0-6); HEMATOCRIT 44.6 % (37.9-51.0); HEMOGLOBIN 15.2 g/dL (13.5-17.0); LYMPHOCYTES % (AUTO) 9.2 % (13-45); MEAN CORPUSCULAR HEMOGLOBIN 33.2 pg (27.0-33.4); MEAN CORPUSCULAR HGB CONC 34.1 g/dL (32.0-36.0); MEAN CORPUSCULAR VOLUME 97 fl (80-97); MONOCYTES % (AUTO) 13.3 % (3-13); PLATELET COUNT 343 10^3/uL (150-450); RED BLOOD COUNT 4.58 10^6/uL (4.35-5.55); RED CELL DISTRIBUTION WIDTH 13.9 % (11.5-14.0); SEGMENTED NEUTROPHILS % (AUTO) 73.9 % (42-78); TOTAL CELLS COUNTED % (AUTO) 100 %; WHITE BLOOD COUNT 10.4 10^3/uL (4.0-10.5)
[2020-02-21 15:04] LABS: ALBUMIN 3.8 g/dL (3.5-5.0); ALKALINE PHOSPHATASE 38 U/L (38-126); ANION GAP 6 (5-19); ASPARTATE AMINO TRANSFERASE 31 U/L (17-59); BILIRUBIN,DIRECT 0.1 mg/dL (0.0-0.4); BILIRUBIN,TOTAL 0.8 mg/dL (0.2-1.3); BLOOD UREA NITROGEN 10 mg/dL (7-20); CALCIUM 9.1 mg/dL (8.4-10.2); CARBON DIOXIDE 33 mmol/L (22-30); CHLORIDE 99 mmol/L (98-107); CREATINE KINASE 291 U/L (55-170); GLUCOSE 96 mg/dL (75-110); POTASSIUM 4.4 mmol/L (3.6-5.0); TOTAL PROTEIN 7.2 g/dL (6.3-8.2)
--- NOTE | 2020-02-21 15:23 | RADIOLOGY REPORT (SQ) ---
EXAM DESCRIPTION: CT RT LOWER EXTREMITY WITH IMAGES COMPLETED DATE/TIME: 02/21/2020 3:03 pm REASON FOR STUDY: R thigh pain, swelling, redness COMPARISON: None. TECHNIQUE: Axial imaging performed through the right thigh with reformatted coronal and sagittal jc ging windowed for bone and soft tissues. Images saved to PACS. 3D IMAGING: Were 3D images as MIP, SSD, or volume rendering performed at the work station? No All CT scanners at this facility use dose modulation, iterative reconstruction, and/or weight based d osing when appropriate to reduce radiation dose to as low as reasonably achievable (ALARA). [facility]: Dose Right [facility]: CareDose [facility]: Dose Right [facility]: Teradose 4D [facility]: [employer] LIMITATIONS: None. RADIATION DOSE: CT Rad equipment meets quality standard of care and radiation dose reduction techniq ues were employed. CTDIvol: 4.1 mGy. DLP: 229 mGy-cm. mGy. FINDINGS: SOFT TISSUES: Fat stranding throughout the anterior subcutaneous tissues. There is mild f luid along the deep subcutaneous fat interface with fascia overlying the anterior compartment. None of this looks like drainable abscess. No skin defects appreciated. No foreign body evident. No gas collections. BONES: No acute fracture. No dislocation. MINERALIZATION: Normal. OTHER: No other significant finding. IMPRESSION: Anterior thigh cellulitis. No scratch at strandy fluid along the deep subcutaneous tiss ues but no significant drainable collection to suggest abscess. TECHNICAL DOCUMENTATION: JOB ID: [id number] Quality ID # [id number]: Final reports with documentation of one or more dose reduction techniques (e.g., Au tomated exposure control, adjustment of the mA and/or kV according to patient size, use of iterative reconstruction technique) 2010 [employer]- All Rights Reserved Reading location - IP/workstation name: [email or web address]
[2020-02-21] MEDS ORDERED: MORPHINE SULFATE 10 MG/ML INJ IV ONE (15:57)
[2020-02-21 16:06] LABS: APPEARANCE,URINE CLEAR; BILIRUBIN,URINE NEGATIVE (NEGATIVE); COLOR,URINE YELLOW; GLUCOSE, URINE NEGATIVE (NEGATIVE); KETONES,URINE NEGATIVE (NEGATIVE); PROTEIN,URINE NEGATIVE (NEGATIVE); URINE SPECIFIC GRAVITY 1.036
[2020-02-21 18:10] VITALS: BP 156/97
== END 2020-02-21 17:40 | disposition home or self-care (01) ==
LOC: ER 13:13
DX: L03.115 Cellulitis of right lower limb (principal); M79.10 Myalgia, unspecified site; Z98.890 Other specified postprocedural states
CPT/HCPCS: 99284; 96361; 96375; 96365; 96367; 36415; 87040; 82550; 85025; 80053; 81001; 73552; 73701; J2270; J7030; J3370; J2543